=== PATIENT | male | born 1960 | race Caucasian/White ===

== ENCOUNTER 2017-02-02 07:52 | Day surgery (SDC) | payer MEDICAID ==
[2017-02-02 09:07] LABS: PARTIAL THROMBOPLASTIN TIME 29.9 SEC (23.5-35.8)
[2017-02-02 09:11] LABS: PROTHROMBIN TIME 12.9 SEC (11.4-15.4)
--- NOTE | 2017-02-02 11:50 | RADIOLOGY REPORT (SQ) ---
EXAM DESCRIPTION: CT CERVICAL SPINE WITHOUT COMPLETED DATE/TIME: 02/02/2017 10:52 am REASON FOR STUDY: RADICULOPATHY CERVICAL REGION M54.12 RADICULOPATHY, CERVICAL REGION COMPARISON: None. TECHNIQUE: Axial images acquired through the cervical spine without intravenous contrast. Images re viewed with lung, soft tissue and bone windows. Reconstructed coronal and sagittal MPR images review ed. Images stored on PACS. All CT scanners at this facility use dose modulation, iterative reconstruction, and/or weight based d osing when appropriate to reduce radiation dose to as low as reasonably achievable (ALARA). [facility]: Dose Right [facility]: CareDose [facility]: Dose Right [facility]: Teradose 4D [facility]: [employer] RADIATION DOSE: Up-to-date CT equipment and radiation dose reduction techniques were employed. CTDIv ol: 16.8 mGy. DLP: 454 mGy-cm. mGy. LIMITATIONS: None. FINDINGS: ALIGNMENT: Anatomic. MINERALIZATION: Normal. VERTEBRAL BODIES: No fractures or dislocation. DISCS: Craniocervical junction, C1-2, C2-3 and C3-4 are unremarkable. At C4-5, no significant posterior disc bulging or central stenosis is present. There is very mild bi lateral foraminal narrowing at C4-5 related to facet and uncovertebral hypertrophy, best shown on axi al image 51. At C5-6, no significant posterior disc bulging or central stenosis is present. No right foraminal na rrowing. Mild left foraminal narrowing is present from facet and uncovertebral hypertrophy, best pascale wn on axial images 57 and 58. At C6-7, very mild posterior disc bulging is present without central stenosis. No foraminal stenosis . At C7-T1, no central stenosis is present. No right foraminal narrowing. Mild left foraminal narrowi ng from facet and uncovertebral hypertrophy. FACETS, LATERAL MASSES, POSTERIOR ELEMENTS: No fractures. No dislocation. No acute findings. HARDWARE: None in the spine. VISUALIZED RIBS: No fractures. LUNG APICES AND SOFT TISSUES: No significant or acute findings. OTHER: No other significant finding. IMPRESSION: Very mild degenerative changes at C4-5 and C5-6 as above. No cervical disc protrusion/h erniation. TECHNICAL DOCUMENTATION: JOB ID: [id number] Quality ID # [id number]: Final reports with documentation of one or more dose reduction techniques (e.g., Au tomated exposure control, adjustment of the mA and/or kV according to patient size, use of iterative reconstruction technique) 2010 [employer]- All Rights Reserved
[2017-02-02 12:58] VITALS: BP 135/85
== END 2017-02-02 11:05 | disposition home or self-care (01) ==
LOC: RAD 07:52
PROVIDERS: ATTEND Specialist
DX: M54.12 Radiculopathy, cervical region (principal)
CPT/HCPCS: 36415; 72125; 85610; 85730